=== PATIENT | female | born 1990 ===

== ENCOUNTER 2023-07-17 17:31 | Emergency (ER) | payer OTHER ==
[2023-07-17 18:01] VITALS: TEMP 98.2
[2023-07-17] MEDS ORDERED: SODIUM CHLORIDE 0.9% 1,000 ML IV STA (21:20)
[2023-07-17] MEDS ORDERED: MECLIZINE 12.5 MG TAB PO STA (21:20)
[2023-07-17] MEDS ORDERED: METOCLOPRAMIDE 5 MG/ML 2 ML VIAL IVP STA (21:20)
[2023-07-17] MEDS ORDERED: ACETAMINOPHEN TAB 500 MG TAB PO STA (21:31)
[2023-07-17] MEDS ORDERED: KETOROLAC 15 MG/ML 1 ML VIAL IVP STA (21:31)
--- NOTE | 2023-07-17 21:32 | ED ---
General Adult HPI - General Chief complaint: Headache Stated complaint: Dizziness,Headache Time Seen by Provider: 07/17/23 20:43 Source: patient Mode of arrival: ambulatory Limitations: no limitations - History of Present Illness Initial comments: 32-year-old female presented to the ED with a chief complaint of dizziness. Patient states for the past few months has had intermittent episodes of a "wooshing" sound in her right ear and right-sided headache. Reports that she saw an ENT for this in the past however has not followed up due to recently mov ing to this area. Today, states onset of this "wooshing" around and right sided headache. However also notes some dizziness which patient reports she has not felt with her symptoms in the past. Associated nausea. States that she has tried taking 1 g of Tylenol and 4 mg of Zofran which has not provided her relief. Denies chest reassurance of breath. No other complaints. - Related Data Previous Rx's Medication Instructions Recorded Meclizine [Antivert] 25 mg PO QID PRN #20 tab 07/17/23 Allergies Allergy/AdvReac Type Severity Reaction Status Date / Time morphine Allergy Rash/Hives Verified 07/17/23 17:57 solifenacin [From Vesicare] Allergy Rash/Hives Verified 07/17/23 17:57 sumatriptan [From Imitrex] Allergy Rash/Hives Verified 07/17/23 17:57 tramadol Allergy Rash/Hives Verified 07/17/23 17:57 Review of Systems ROS Statement: Those systems with pertinent positive or pertinent negative responses have been documented in the HPI. ROS Other: All systems not noted in ROS Statement are negative. Past Medical History Past Medical History: Asthma, Fibromyalgia Additional Past Medical History / Comment(s): Migraines History of Any Multi-Drug Resistant Organisms: None Reported Past Surgical History: Adenoidectomy, Section, Cholecystectomy, Ear Surgery, Tonsillectomy Additional Past Surgical History / Comment(s): bladder Past Psychological History: No Psychological Hx Reported Smoking Status: Current every day smoker Past Alcohol Use History: Occasional Past Drug Use History: Marijuana General Exam Limitations: no limitations General appearance: alert, in no apparent distress Eye exam: Present: normal appearance, other (Horizontal nystagmus) ENT exam: Present: TM's normal bilaterally Neck exam: Present: normal inspection Respiratory exam: Present: normal lung sounds bilaterally Cardiovascular Exam: Present: regular rate, normal rhythm GI/Abdominal exam: Present: soft Neurological exam: Present: alert, oriented X3, CN II-XII intact, other (Finger to nose, rapid alternating hand movements, heel to nur intact.) Skin exam: Present: warm, dry Course Vital Signs 07/17/23 07/17/23 17:53 21:56 Temperature 98.2 F Pulse Rate 73 78 Respiratory 20 16 Rate Blood Pressure 134/84 114/73 O2 Sat by Pulse 99 97 Oximetry Medical Decision Making - Medical Decision Making Was pt. sent in by a medical professional or institution (, PRISCILLA, ARTIST SUSPECT, urgent care, hospital, or long term...) When possible be specific @ -No Did you speak to anyone other than the patient for history (EMS, parent, family, police, friend...)? What history was obtained from this source @ -No Did you review nursing and triage notes (agree or disagree)? Why? @ -I reviewed and agree with nursing and triage notes Were old charts reviewed (outside hosp., previous admission, EMS record, old EKG, old radiological studies, urgent care reports/EKG's, long term records)? Report findings @ -No old charts were reviewed Differential Diagnosis (chest pain, altered mental status, abdominal pain women, abdominal pain men, vaginal bleeding, weakness, fever, dyspnea, syncope, headache, dizziness, GI bleed, back pain, seizure, CVA, palpatations, mental health, musculoskeletal)? @ -Differential Headache: Migraine, tension, cluster, carbon monoxide, central venous thrombosis, pension karma temporal arteritis, acute closure glaucoma, intercranial hemorrhage, mastoiditis, sinusitis, head injury, this is not meant to be an all-inclusive list. EKG interpreted by me (3pts min.). @ -None X-rays interpreted by me (1pt min.). @ -None done CT interpreted by me (1pt min.). @ -None done U/S interpreted by me (1pt. min.). @ -None done What testing was considered but not performed or refused? (CT, X-rays, U/S, labs)? Why? @ -None What meds were considered but not given or refused? Why? @ -None Did you discuss the management of the patient with other professionals (professionals i.e. , PA, ARTIST SUSPECT, lab, RT, psych nurse, social worker delinquency prevention, or nurse manager, teacher, project control officer, spring encaser)? Give summary @ -No Was smoking cessation discussed for >3mins.? @ -No Was critical care preformed (if so, how long)? @ -No Were there social determinants of health that impacted care today? How? (Homelessness, low income, unemployed, alcoholism, drug addiction, transportation, low edu. Level, literacy, decrease access to med. care, long-term, rehab)? @ -No Was there de-escalation of care discussed even if they declined (Discuss DNR or withdrawal of care, Hospice)? DNR status @ -No What co-morbidities impacted this encounter? (DM, HTN, Smoking, COPD, CAD, Cancer, CVA, ARF, Chemo, Hep., AIDS, mental health diagnosis, sleep apnea, morbid obesity)? @ -None Was patient admitted / discharged? Hospital course, mention meds given and route, prescriptions, significant lab abnormalities, going to OR and other pertinent info. @ -Discharge 32-year-old female presenting with ongoing intermittent episodes of right ear pain, right-sided headache associated nausea now experiencing dizziness today. Exam is significant for horizontal nystagmus. At this time, patient received Reglan, meclizine, Toradol, Tylenol, and IV fluids. Patient reports at this time feels significantly improved and reports that she would like to go home due to her ride being here with no further testing. At this time, discharged in stable condition. Discussed return precautions with patient who verbalizes agreement. Undiagnosed new problem with uncertain prognosis? @ -No Drug Therapy requiring intensive monitoring for toxicity (Heparin, Nitro, Insulin, Cardizem)? @ -No Were any procedures done? @ -No Diagnosis/symptom? @ -Vertigo Acute, or Chronic, or Acute on Chronic? @ -Acute on chronic Uncomplicated (without systemic symptoms) or Complicated (systemic symptoms)? @ -Uncomplicated Side effects of treatment? @ -No Exacerbation, Progression, or Severe Exacerbation? @ -No Poses a threat to life or bodily function? How? (Chest pain, [place], [place], pneumonia, PE, COPD, DKA, ARF, appy, cholecystitis, CVA, Diverticulitis, Homicidal, Suicidal, threat to staff... and all critical care pts) @ -No Disposition Clinical Impression: Vertigo Disposition: HOME SELF-CARE Condition: Good Instructions (If sedation given, give patient instructions): Vertigo (ED), Benign Paroxysmal Positional Vertigo (ED) Additional Instructions: Please return to the Emergency Department if symptoms worsen or any other concerns. Please follow-up with ENT. Prescriptions: Meclizine [Antivert] 25 mg PO QID PRN #20 tab PRN Reason: Vertigo Is patient prescribed a controlled substance at d/c from ED?: No Referrals: None,Stated [Primary Care Provider] - 1-2 days Javed Lobato DO [Doctor of Osteopathic Medicine] - 1-2 days Time of Disposition: 22:39
[2023-07-17] MEDS ORDERED: SCOPOLAMINE 1 MG/72 HR PATCH TRANSDERM STA (22:24)
[2023-07-17] MEDS ORDERED: ACET/COD 300 MG/30 MG STARTER PACK 6 TAB BTL PO STA (22:24)
[2023-07-17 22:33] VITALS: BP 114/73; PULSE 78; RESP 16
== END 2023-07-17 22:44 | disposition home or self-care (01) ==
LOC: EC 17:31
DX: R42 Dizziness and giddiness (principal); J45.909 Unspecified asthma, uncomplicated; F12.90 Cannabis use, unspecified, uncomplicated; F17.200 Nicotine dependence, unspecified, uncomplicated; Z88.5 Allergy status to narcotic agent; Z88.8 Allergy status to other drugs, medicaments and biological substances; Z90.49 Acquired absence of other specified parts of digestive tract
CPT/HCPCS: 99284; 96374; 96375; J2765; J1885

== ENCOUNTER → 2023-11-30 | Outpatient (CLI) | payer OTHER ==
--- NOTE | 2023-11-30 16:45 | XR ---
PROCEDURE: XR shoulder complete RT - 3V DATE AND TIME: 11/30/2023 4:22 PM CLINICAL INDICATION: PHH; R06.02 SHORTNESS OF BREATHE TECHNIQUE: Department protocol COMPARISON: None FINDINGS: There is no fracture or malalignment. The soft tissues are unremarkable. IMPRESSION: NO ACUTE PROCESS.
--- NOTE | 2023-11-30 16:48 | XR ---
PROCEDURE: XR cervical spine comp DATE AND TIME: 11/30/2023 4:22 PM CLINICAL INDICATION: PHH; R06.02 SHORTNESS OF BREATHE TECHNIQUE: 5 views were obtained. COMPARISON: None FINDINGS/IMPRESSION: There is cervical spine straightening and even gentle reversal of the normal lordotic curvature apex at the C4-5 level. There is no fracture or malalignment. The soft tissues are unremarkable.
== END | disposition home or self-care (01) ==
LOC: RADXRMAIN 16:01
PROVIDERS: ATTEND Emergency Medicine
DX: S46.911A Strain of unspecified muscle, fascia and tendon at shoulder and upper arm level, right arm, initial encounter (principal); M54.2 Cervicalgia; R20.9 Unspecified disturbances of skin sensation
CPT/HCPCS: 72050

== ENCOUNTER → 2024-01-05 | Outpatient (CLI) | payer OTHER ==
[2024-01-05 15:52] LABS: Basophils # (A) 0.08 X 10*3/uL (0.00-0.10); Basophils % (A) 1.1 %; Eosinophils # (A) 0.27 X 10*3/uL (0.04-0.35); Eosinophils % (A) 3.6 %; HCT 37.7 % (37.2-46.3); HGB 12.4 g/dL (12.0-15.0); Lymphocytes # (A) 2.78 X 10*3/uL (0.90-5.00); Lymphocytes % (A) 37.4 %; MCHC 32.9 g/dL (32.0-37.0); MCV 88.3 FL (80.0-97.0); Mean Platelet Volume 10.8 FL (9.5-12.2); Monocytes # (A) 0.43 X 10*3/uL (0.20-1.00); Monocytes % (A) 5.8 %; NRBC Per 100 WBC 0 X 10*3/uL (0.00-0.01); Neutrophils # (A) 3.86 X 10*3/uL (1.80-7.70); Platelet Count 255 X 10*3/uL (140-440); RBC 4.27 X 10*6/uL (4.10-5.20); RDW 12.2 % (11.5-14.5); WBC 7.43 X 10*3/uL (4.50-10.00)
[2024-01-05 16:29] LABS: ALT 17 U/L (8-44); AST 16 U/L (13-35); Albumin 4.1 g/dL (3.8-4.9); Albumin/Globulin Ratio 1.86 Ratio (1.60-3.17); Alkaline Phosphatase 75 U/L (41-126); Blood Urea Nitrogen 8.1 mg/dL (9.0-27.0); Calcium 9.1 mg/dL (8.7-10.3); Carbon Dioxide 23.9 mmol/L (21.6-31.8); Chloride 107 mmol/L (96-109); Chol/HDL Ratio 3.08 Ratio; Globulin 2.2 g/dL (1.6-3.3); Glucose 87 mg/dL (70-110); LDL Cholesterol,Calculated 83.6 mg/dL (0.0-131.0); Potassium 4.4 mmol/L (3.5-5.5); Sodium 141 mmol/L (135-145); Total Bilirubin 0.4 mg/dL (0.3-1.2); Total Protein 6.3 g/dL (6.2-8.2); VLDL Calculation 15.68 mg/dL (5.00-40.00)
== END | disposition home or self-care (01) ==
LOC: LABWHC1 12:05
PROVIDERS: ATTEND Family Medicine
DX: M79.7 Fibromyalgia (principal)
CPT/HCPCS: 36415; 80053; 80061; 82306; 84443; 85025; 93005

== ENCOUNTER → 2024-01-05 | Outpatient (CLI) | payer OTHER ==
[2024-01-05 15:52] LABS: Basophils # (A) 0.08 X 10*3/uL (0.00-0.10); Basophils % (A) 1.1 %; Eosinophils # (A) 0.27 X 10*3/uL (0.04-0.35); Eosinophils % (A) 3.6 %; HCT 37.7 % (37.2-46.3); HGB 12.4 g/dL (12.0-15.0); Lymphocytes # (A) 2.78 X 10*3/uL (0.90-5.00); Lymphocytes % (A) 37.4 %; MCHC 32.9 g/dL (32.0-37.0); MCV 88.3 FL (80.0-97.0); Mean Platelet Volume 10.8 FL (9.5-12.2); Monocytes # (A) 0.43 X 10*3/uL (0.20-1.00); Monocytes % (A) 5.8 %; NRBC Per 100 WBC 0 X 10*3/uL (0.00-0.01); Neutrophils # (A) 3.86 X 10*3/uL (1.80-7.70); Platelet Count 255 X 10*3/uL (140-440); RBC 4.27 X 10*6/uL (4.10-5.20); RDW 12.2 % (11.5-14.5); WBC 7.43 X 10*3/uL (4.50-10.00)
[2024-01-05 16:29] LABS: ALT 17 U/L (8-44); AST 16 U/L (13-35); Albumin 4.1 g/dL (3.8-4.9); Albumin/Globulin Ratio 1.86 Ratio (1.60-3.17); Alkaline Phosphatase 75 U/L (41-126); Blood Urea Nitrogen 8.1 mg/dL (9.0-27.0); Calcium 9.1 mg/dL (8.7-10.3); Carbon Dioxide 23.9 mmol/L (21.6-31.8); Chloride 107 mmol/L (96-109); Chol/HDL Ratio 3.08 Ratio; Globulin 2.2 g/dL (1.6-3.3); Glucose 87 mg/dL (70-110); LDL Cholesterol,Calculated 83.6 mg/dL (0.0-131.0); Potassium 4.4 mmol/L (3.5-5.5); Sodium 141 mmol/L (135-145); Total Bilirubin 0.4 mg/dL (0.3-1.2); Total Protein 6.3 g/dL (6.2-8.2); VLDL Calculation 15.68 mg/dL (5.00-40.00)
== END | disposition home or self-care (01) ==
LOC: LABWHC1 14:20
PROVIDERS: ATTEND Psychiatry & Neurology Neurology
DX: I49.9 Cardiac arrhythmia, unspecified (principal)
CPT/HCPCS: 36415; 80053; 80061; 82306; 84443; 85025

== ENCOUNTER 2024-06-27 14:16 | Observation (INO) | payer OTHER ==
[2024-06-27] MEDS: LORazepam 2 MG/ML INJ IV STA (15:32)
[2024-06-27] MEDS: SODIUM CHLORIDE 0.9% 1,000 ML IV STA (15:51)
[2024-06-27] MEDS: ONDANSETRON 4 MG/2 ML VIAL IVP STA (15:52)
[2024-06-27] MEDS: MECLIZINE 12.5 MG TAB PO STA (15:55)
[2024-06-27] MEDS: diphenhydrAMINE 50 MG/ML 1 ML VIAL IVP STA (15:56)
[2024-06-27] MEDS: HYDROmorphone 0.5 MG/0.5 ML SYRINGE IVP STA (15:58)
[2024-06-27 16:03] LABS: Basophils # (A) 0.1 k/uL (0-0.2); Basophils % (A) 1 %; Eosinophils # (A) 0.3 k/uL (0-0.7); Eosinophils % (A) 4 %; HGB 13.4 gm/dL (11.4-16.0); Lymphocytes # (A) 3.3 k/uL (1.0-4.8); Lymphocytes % (A) 39 %; MCH 29.2 pg (25.0-35.0); MCHC 32.6 g/dL (31.0-37.0); MCV 89.6 fL (80.0-100.0); Mean Platelet Volume 8.2; Monocytes # (A) 0.4 k/uL (0-1.0); Monocytes % (A) 4 %; Neutrophils # (A) 4.2 k/uL (1.3-7.7); Neutrophils % (A) 50 %; Platelet Count 276 k/uL (150-450); RBC 4.58 m/uL (3.80-5.40); WBC 8.4 k/uL (3.8-10.6)
[2024-06-27 16:07] LABS: Amorphous Sediment,Urine Rare /hpf; Appearance,Urine Cloudy (Clear); Bacteria,Urine Few /hpf; Bilirubin,Urine Negative (Negative); Blood,Urine Negative (Negative); Color,Urine Yellow; Glucose,Urine (UA) Negative (Negative); Ketones,Urine Negative (Negative); Leukocyte Esterase,Urine Negative (Negative); Mucus,Urine Many /hpf; Nitrite,Urine Negative (Negative); PH, Urine 5.5 (5.0-8.0); Protein,Urine Trace (Negative); RBC,Urine 3 /hpf (0-5); Squamous Epithelial Cell,Urine 8 /hpf (0-4); Urobilinogen,Urine <2.0 mg/dL (<2.0); WBC,Urine 4 /hpf (0-5)
[2024-06-27 16:16] LABS: INR 0.9 (<1.2); Partial Thromboplastin Time 25.1 sec (22.0-30.0); Prothrombin Time 10.5 sec (10.0-12.5)
--- NOTE | 2024-06-27 17:18 | CT ---
EXAMINATION TYPE: CT brain wo con DATE OF EXAM: 06/27/2024 COMPARISON: None INDICATION: dizziness, hx of vertigo DLP: 1141.6 mGycm, Automated exposure control for dose reduction was used. CONTRAST: None CT of the brain is performed utilizing 3 mm thick sections through the posterior fossa and 3 mm thick sections through the remaining calvarium. Study is performed within 24 hours of arrival to the hosp ital. No abnormal hyperdensity is present to suggest an acute intracranial hemorrhage. No mass lesion is evident. No acute infarcts are evident. Ventricles and sulci are appropriate for the patient age. Paranasal sinuses and mastoid air cells within the [id number] are clear. IMPRESSION: 1. No acute intracranial process. Follow up MRI can be performed as clinically indicated. [facility], , 06/27/2024 5:16 PM
--- NOTE | 2024-06-27 17:39 | CT ---
EXAMINATION TYPE: CT angio head neck DATE OF EXAM: 06/27/2024 HISTORY: dizziness, hx of vertigo COMPARISON: None CT DLP: 817.2 mGycm. Automated Exposure Control for Dose Reduction was Utilized. TECHNIQUE: CTA scan of the neck is performed with IV Contrast, patient injected with 65ml mL of Isov ue 370, axial images are obtained, coronal and sagittal reformatted images are reviewed. Three-D jennifer nstructed images are created on an independent workstation and reviewed. Source images are reviewed. FINDINGS: Carotid/Vascular Structures: There is a 3 vessel arch. Common carotid arteries bifurcate into internal and external carotid arteries without significant chelly w limiting stenosis. Vertebral arteries are codominant. Internal carotid arteries and vertebral arteries are patent to the skull base. Cervical of [place]: Vertebral basilar system appears normal. Posterior cerebral vasculature is unrema rkable. Internal carotid arteries bifurcate normally into A1 and M1 segments. A2 segments are normal. The anterior communicating artery is absent. The posterior communicating arteries are not identified. Other: IMPRESSION: 1. No flow-limiting stenosis bilateral carotid bifurcations. 2. Normal [place] of [place] NASCET criteria was used in interpretation of this exam? [facility], , 06/27/2024 5:37 PM
[2024-06-27] MEDS ORDERED: ONDANSETRON 4 MG/2 ML VIAL IVP PRN (18:02)
[2024-06-27] MEDS ORDERED: NALOXONE 0.4 MG/ML 1 ML VIAL IV PRN (18:02)
--- NOTE | 2024-06-27 18:04 | ED ---
General Adult HPI - General Chief complaint: Dizziness Stated complaint: vertigo,neck pain Time Seen by Provider: 06/27/24 15:04 Source: patient, RN notes reviewed, old records reviewed Mode of arrival: ambulatory Limitations: no limitations - History of Present Illness Initial comments: Patient is a 33-year-old female who presents emergency department complaining of vertigo for multiple days. Does have a history of intermittent vertigo as well as migraines. Was sent in by her neurologist to be evaluated for possible stroke. Describes the vertigo as room spinning sensation. Has intermittent headaches without radiate into her neck. Denies any other acute complaints at this time. Denies nausea or vomiting. Denies abdominal pain, chest pain, shortness of breath. Denies any fevers. Presents for further evaluation.Patient states that vertigo is worse with certain positions and movement. Denies upper respiratory infection symptoms. - Related Data Home Medications Medication Instructions Recorded Confirmed Acetaminophen Tab [Tylenol Tab] 1,000 mg PO BID PRN 06/27/24 06/27/24 Gabapentin [Neurontin] 300 mg PO TID 06/27/24 06/27/24 Omeprazole 40 mg PO DAILY 06/27/24 06/27/24 Rimegepant Sulfate [Nurtec Odt] 75 mg PO DAILY PRN 06/27/24 06/27/24 Previous Rx's Medication Instructions Recorded Meclizine [Antivert] 25 mg PO QID PRN #20 tab 07/17/23 Allergies Allergy/AdvReac Type Severity Reaction Status Date / Time solifenacin [From Vesicare] Allergy Rash/Hives Verified 06/27/24 16:43 sumatriptan [From Imitrex] Allergy Rash/Hives Verified 06/27/24 16:43 morphine AdvReac See comment Verified 06/27/24 16:43 tramadol AdvReac Nausea & Verified 06/27/24 16:43 Vomiting Review of Systems ROS Statement: Those systems with pertinent positive or pertinent negative responses have been documented in the HPI. Review of Systems: CONST: Denies fever EYES: Denies blurry vision ENT: Denies nasal congestion C/V: Denies Chest pain RESP: Denies shortness of breath GI: Denies abdominal pain : Denies dysuria SKIN: Denies rash. MSK: Denies joint pain. NEURO: Endorses headache ROS Other: All systems not noted in ROS Statement are negative. Past Medical History Past Medical History: Asthma, Fibromyalgia Additional Past Medical History / Comment(s): Migraines History of Any Multi-Drug Resistant Organisms: None Reported Past Surgical History: Adenoidectomy, Section, Cholecystectomy, Ear Surgery, Tonsillectomy Additional Past Surgical History / Comment(s): bladder Past Psychological History: No Psychological Hx Reported Smoking Status: Current every day smoker Past Alcohol Use History: Occasional Past Drug Use History: Marijuana General Exam - General Exam Comments Initial Comments: General: Appears in no acute distress. HEAD: Normal with no signs of head trauma. EYES: PERRLA, EOMI, conjunctiva normal, no discharge. Pupils are 3 mm and equal bilaterally. No obvious nystagmus present. ENT: Hearing grossly intact, normal oropharynx. RESPIRATORY: Clear breath sounds bilaterally. No wheezes, rales, or rhonchi. C/V: Regular rate and rhythm. S1 and S2 auscultated, peripheral pulses 2+ and intact throughout ABD: Abd is soft, nontender, nondistended EXT: Normal range of motion, no obvious deformity SKIN: No rashes or lesions observed on exposed skin. NEURO: Alert and oriented x 4. Cranial nerves II-XII intact. No focal sensory or strength deficits. GCS of 15. NIH of 0. Negative dysdiadochokinesia. Normal finger-nose testing and [id number]-ny-[id number] testing. Limitations: no limitations Course Vital Signs 06/27/24 06/27/24 14:35 18:45 Temperature 98.6 F 98.9 F Pulse Rate 72 74 Respiratory 18 20 Rate Blood Pressure 131/83 146/75 O2 Sat by Pulse 99 99 Oximetry Medical Decision Making - Medical Decision Making Was pt. sent in by a medical professional or institution (, PA, OVEN ATTENDANT, urgent c are, hospital, or correction...) When possible be specific @ -No Did you speak to anyone other than the patient for history (EMS, parent, family, police, friend...)? What history was obtained from this source @ -No Did you review nursing and triage notes (agree or disagree)? Why? @ -I reviewed and agree with nursing and triage notes Were old charts reviewed (outside hosp., previous admission, EMS record, old EKG, old radiological studies, urgent care reports/EKG's, correction records)? Report findings @ -Reviewed prior EKG from December 2023. No significant acute changes today. Differential Diagnosis (chest pain, altered mental status, abdominal pain women, abdominal pain men, vaginal bleeding, weakness, fever, dyspnea, syncope, headache, dizziness, GI bleed, back pain, seizure, CVA, palpatations, mental health, musculoskeletal)? @ -Differential Dizziness: Benign paroxysmal positional Vertigo, Meniere's disease, otitis media, acoustic neuroma, vertebrobasilar insufficiency, cerebellar stroke, encephalitis, hypovolemic, arrhythmia, coronary artery syndrome, anemia, this is not meant to be an all-inclusive list EKG interpreted by me (3pts min.). @ -As above X-rays interpreted by me (1pt min.). @ -None done CT interpreted by me (1pt min.). @ -CT brain, CT angiogram of the head and neck negative for any obvious acute process to explain the patient's symptoms. U/S interpreted by me (1pt. min.). @ -None done What testing was considered but not performed or refused? (CT, X-rays, U/S, labs)? Why? @ -None What meds were considered but not given or refused? Why? @ -None Did you discuss the management of the patient with other professionals (professionals i.e. , PA, OVEN ATTENDANT, lab, RT, psych nurse, social security assessor, vocational training director, teacher, grants officer, mattress spring encaser)? Give summary @ -Discussed with admitting physician, Dr. Skaggs who accepted the admission. Was smoking cessation discussed for >3mins.? @ -No Was critical care preformed (if so, how long)? @ -No Were there social determinants of health that impacted care today? How? (Homelessness, low income, unemployed, alcoholism, drug addiction, transportation, low edu. Level, literacy, decrease access to med. care, longterm, rehab)? @ -No Was there de-escalation of care discussed even if they declined (Discuss DNR or withdrawal of care, Hospice)? DNR status @ -No What co-morbidities impacted this encounter? (DM, HTN, Smoking, COPD, CAD, Cancer, CVA, ARF, Chemo, Hep., AIDS, mental health diagnosis, sleep apnea, morbid obesity)? @ -None Was patient admitted / discharged? Hospital course, mention meds given and route, prescriptions, significant lab abnormalities, going to OR and other pertinent info. @ -Patient presents to the emergency department complaining of vertiginous symptoms that have been on and off for the last 3 to 4 days. Was sent in by neurologist to rule out stroke. NIH is 0. Does not meet criteria for stroke pager activation. We will obtain CT as well as CT angiogram of the head and neck. Basic labs will be obtained. Patient was in agreement this plan. Vitals are within acceptable limits. She will be symptomatically treated with IV medications. EKG showed no signs of acute ischemia. Imaging shows no obvious acute intracranial process or serious obstruction. Laboratory studies are unremarkable. On reevaluation despite meclizine patient is still having intermittent v ertiginous symptoms. Seems to be very positional. However due to the continued vertigo I did offer admission which she accepted. Patient will be admitted to observation. Neurology will be consulted. I spoke with the admitting physician, Dr. Skaggs who accepted the admission. Patient given a dose of aspirin. Undiagnosed new problem with uncertain prognosis? @ -No Drug Therapy requiring intensive monitoring for toxicity (Heparin, Nitro, Insulin, Cardizem)? @ -No Were any procedures done? @ -No Diagnosis/symptom? @ -Vertigo Acute, or Chronic, or Acute on Chronic? @ -Acute Uncomplicated (without systemic symptoms) or Complicated (systemic symptoms)? @ -Complicated Side effects of treatment? @ -No Exacerbation, Progression, or Severe Exacerbation? @ -No Poses a threat to life or bodily function? How? (Chest pain, [place], [place], pneumonia, PE, COPD, DKA, ARF, appy, cholecystitis, CVA, Diverticulitis, Homicidal, Suicidal, threat to staff... and all critical care pts) @ -Potentially, yes - Lab Data Result diagrams: 06/27/24 15:53 06/27/24 17:50 Lab Results 06/27/24 06/27/24 06/27/24 Range/Units 15:53 15:53 15:53 WBC 8.4 (3.8-10.6) k/uL RBC 4.58 (3.80-5.40) m/uL Hgb 13.4 (11.4-16.0) gm/dL Hct 41.0 (34.0-46.0) % MCV 89.6 (80.0-100.0) fL MCH 29.2 (25.0-35.0) pg MCHC 32.6 (31.0-37.0) g/dL RDW 13.0 (11.5-15.5) % Plt Count 276 (150-450) k/uL MPV 8.2 Neutrophils % 50 % Lymphocytes % 39 % Monocytes % 4 % Eosinophils % 4 % Basophils % 1 % Neutrophils # 4.2 (1.3-7.7) k/uL Lymphocytes # 3.3 (1.0-4.8) k/uL Monocytes # 0.4 (0-1.0) k/uL Eosinophils # 0.3 (0-0.7) k/uL Basophils # 0.1 (0-0.2) k/uL PT 10.5 (10.0-12.5) sec INR 0.9 (<1.2) APTT 25.1 (22.0-30.0) sec Sodium (137-145) mmol/L Potassium (3.5-5.1) mmol/L Chloride (98-107) mmol/L Carbon Dioxide (22-30) mmol/L Anion Gap mmol/L BUN (7-17) mg/dL Creatinine (0.52-1.04) mg/dL Est GFR (CKD-EPI)AfAm (>60 ml/min/1.73 sqM) Est GFR (CKD-EPI)NonAf (>60 ml/min/1.73 sqM) Glucose (74-99) mg/dL Calcium (8.4-10.2) mg/dL Total Bilirubin (0.2-1.3) mg/dL AST (14-36) U/L ALT (4-34) U/L Alkaline Phosphatase (38-126) U/L Total Protein (6.3-8.2) g/dL Albumin (3.5-5.0) g/dL Urine Color Yellow Urine Appearance Cloudy H (Clear) Urine pH 5.5 (5.0-8.0) Ur Specific [place] 1.030 (1.001-1.035) Urine Protein Trace H (Negative) Urine Glucose (UA) Negative (Negative) Urine Ketones Negative (Negative) Urine Blood Negative (Negative) Urine Nitrite Negative (Negative) Urine Bilirubin Negative (Negative) Urine Urobilinogen <2.0 (<2.0) mg/dL Ur Leukocyte Esterase Negative (Negative) Urine RBC 3 (0-5) /hpf Urine WBC 4 (0-5) /hpf Ur Squamous Epith Cells 8 H (0-4) /hpf Amorphous Sediment Rare H (None) /hpf Urine Bacteria Few H (None) /hpf Urine Mucus Many H (None) /hpf 06/27/24 Range/Units 17:50 WBC (3.8-10.6) k/uL RBC (3.80-5.40) m/uL Hgb (11.4-16.0) gm/dL Hct (34.0-46.0) % MCV (80.0-100.0) fL MCH (25.0-35.0) pg MCHC (31.0-37.0) g/dL RDW (11.5-15.5) % Plt Count (150-450) k/uL MPV Neutrophils % % Lymphocytes % % Monocytes % % Eosinophils % % Basophils % % Neutrophils # (1.3-7.7) k/uL Lymphocytes # (1.0-4.8) k/uL Monocytes # (0-1.0) k/uL Eosinophils # (0-0.7) k/uL Basophils # (0-0.2) k/uL PT (10.0-12.5) sec INR (<1.2) APTT (22.0-30.0) sec Sodium 138 (137-145) mmol/L Potassium 3.6 (3.5-5.1) mmol/L Chloride 108 H (98-107) mmol/L Carbon Dioxide 23 (22-30) mmol/L Anion Gap 7 mmol/L BUN 7 (7-17) mg/dL Creatinine 0.63 (0.52-1.04) mg/dL Est GFR (CKD-EPI)AfAm >90 (>60 ml/min/1.73 sqM) Est GFR (CKD-EPI)NonAf >90 (>60 ml/min/1.73 sqM) Glucose 75 (74-99) mg/dL Calcium 8.0 L (8.4-10.2) mg/dL Total Bilirubin 1.1 (0.2-1.3) mg/dL AST 30 (14-36) U/L ALT 17 (4-34) U/L Alkaline Phosphatase 66 (38-126) U/L Total Protein 5.6 L (6.3-8.2) g/dL Albumin 3.5 (3.5-5.0) g/dL Urine Color Urine Appearance (Clear) Urine pH (5.0-8.0) Ur Specific [place] (1.001-1.035) Urine Protein (Negative) Urine Glucose (UA) (Negative) Urine Ketones (Negative) Urine Blood (Negative) Urine Nitrite (Negative) Urine Bilirubin (Negative) Urine Urobilinogen (<2.0) mg/dL Ur Leukocyte Esterase (Negative) Urine RBC (0-5) /hpf Urine WBC (0-5) /hpf Ur Squamous Epith Cells (0-4) /hpf Amorphous Sediment (None) /hpf Urine Bacteria (None) /hpf Urine Mucus (None) /hpf - EKG Data -: EKG Interpreted by Me EKG Comments: 12-lead Electrocardiogram Interpretation Note EKG was reviewed and interpreted by myself. 12-lead ECG performed at 1541 is interpreted by me as revealing normal sinus rhythm at a rate of 63 beats per minute. [place] is normal. [place] interval is 134 ms, QRS duration is 86 ms, QTc is 386 ms.. There were no ST or T wave abnormalities to suggest myocardial ischemia or injury. R wave progression across the precordium was satisfactory. By my interpretation this EKG is non-diagnostic for acute ischemia. Disposition Clinical Impression: Vertigo Disposition: ADMITTED IP TO THIS [facility] Condition: Stable Time of Disposition: 18:00
[2024-06-27 18:17] LABS: ALT 17 U/L (4-34); AST 30 U/L (14-36); African American GFR (CKD) >90 (>60 ml/min/1.73 sqM); Albumin 3.5 g/dL (3.5-5.0); Alkaline Phosphatase 66 U/L (38-126); Anion Gap 7 mmol/L; Blood Urea Nitrogen 7 mg/dL (7-17); Carbon Dioxide 23 mmol/L (22-30); Chloride 108 mmol/L (98-107); Glucose 75 mg/dL (74-99); Non-African American GFR(CKD) >90 (>60 ml/min/1.73 sqM); Potassium 3.6 mmol/L (3.5-5.1); Sodium 138 mmol/L (137-145); Total Bilirubin 1.1 mg/dL (0.2-1.3); Total Protein 5.6 g/dL (6.3-8.2)
[2024-06-27] MEDS: ASPIRIN 325 MG TAB PO STA (18:19)
--- NOTE | 2024-06-27 20:44 | P.HPIM ---
History of Present Illness H&P Date: 06/27/24 Chief Complaint: Dizziness Patient is a 33-year-old female with vertigo and migraines presents to the ED with complaint of vertigo. She states the episode occurred 3 days ago. She notices symptoms when she was sitting down on the ground while she was putting together a bed frame and decided to stand up. She says when she stands up she immediately felt dizzy and fell down. She says that this dizziness has been constant ever since. This morning she decided to call her neurologist and was advised to come to the emergency department to rule out a stroke. She reports has had previous episodes in the past but not as severe as this. She says the dizziness is triggered when she is changing positions such as standing up or sitting up from laying down. She also has current complaint of migraines. She describes the migraine as a sharp pain starting from the back of the head radiating down to the neck. She denies any dehydration, diarrhea, decreased p.o. intake, denies any recent travel or hospital stay. Denies any history of blood clots or strokes. She claims that she had an MRI/MRI of the brain 6 months ago and was told that she has some abnormalities in her blood vessels of the brain possibly related to migraine She also claims that for many years she has been having tinnitus specially in her right ear. Again denies any nausea vomiting denies any headache or vision changes She admits to some chest pain which she got to the ED and describes it as a burning sensation with no radiation. She denies any fever, chills, shortness of breath, nausea, vomiting, abdomen pain. Review of systems: Pertinent positives and negatives as discussed in HPI, a complete review of systems was performed and all other systems are negative. Physical examination: Vitals: T 97.2 Fahrenheit, MN 75, RR 18, BP 123/65, O2 sat 99% on room air General: non toxic, no distress, appears at stated age, obese Derm: no unusual rashes/lesions, warm Head: atraumatic, normocephalic, symmetric Eyes: EOMI, anicteric sclera, pupils equal round reactive to light ENT: Nose and ears atraumatic Mouth: no lip lesion, mucus membranes moist Cardiovascular: S1S2 reg, no murmur, positive dorsalis pedis pulse bilateral, no edema Lungs: CTA bilateral, no rhonchi, no rales, no accessory muscle use Abdominal: soft, nontender to palpation, no guarding Ext: muscle strength 5 out of 5 in all 4 extremities grossly, no gross muscle atrophy, no contractures, Neuro: CN II-XI grossly intact, no gross focal neuro deficits, positive Romberg test, finger-nose exam [id number] exam both unremarkable Psych: Alert, oriented, to person place and time Assessment/Plan: Patient is a 33-year-old female with vertigo and migraines presents to the ED with dizziness. []ED documentation reviewed and case discussed with ED provider. Discussed with: [][]The patient is admitted with an anticipated greater than 2 midnight stay for evaluation of persistent vertigo. #. Persistent vertigo in the setting of dizziness Rule out stroke NIH of 0 All labs unremarkable UA unremarkable EKG independently interpreted normal sinus rhythm with a rate of 63 bpm, QTc [address] angiography showed no flow-limiting stenosis bilateral carotid bifurcations, normal [place] of [place] CT brain showed no acute intracranial process Order brain MRI Check orthostatics Fall precautions Neurochecks q4hr Cardiac monitoring Placed on meclizine 25 mg PO TID PRN Neurology consulted Check orthostatic vitals #. Migraine Toradol 50 mg IVP every 6 hours as needed Neurology consulted #. GERD Continue omeprazole 40 mg PO daily F: N/A E: Replete electrolytes as needed N: Regular diet A: Fall precautions DVT prophylaxis: Lovenox 40 mg subcu daily CODE STATUS: Full code Past Medical History Past Medical History: Asthma, Fibromyalgia Additional Past Medical History / Comment(s): Migraines History of Any Multi-Drug Resistant Organisms: None Reported Past Surgical History: Adenoidectomy, Section, Cholecystectomy, Ear Surgery, Tonsillectomy Additional Past Surgical History / Comment(s): bladder Past Psychological History: No Psychological Hx Reported Smoking Status: Current every day smoker Past Alcohol Use History: Occasional Past Drug Use History: Marijuana Medications and Allergies Home Medications Medication Instructions Recorded Confirmed Type Meclizine [Antivert] 25 mg PO QID PRN #20 tab 07/17/23 06/27/24 Rx Acetaminophen Tab [Tylenol Tab] 1,000 mg PO BID PRN 06/27/24 06/27/24 History Gabapentin [Neurontin] 300 mg PO TID 06/27/24 06/27/24 History Omeprazole 40 mg PO DAILY 06/27/24 06/27/24 History Rimegepant Sulfate [Nurtec Odt] 75 mg PO DAILY PRN 06/27/24 06/27/24 History Allergies Allergy/AdvReac Type Severity Reaction Status Date / Time solifenacin [From Vesicare] Allergy Rash/Hives Verified 06/27/24 16:43 sumatriptan [From Imitrex] Allergy Rash/Hives Verified 06/27/24 16:43 morphine AdvReac See comment Verified 06/27/24 16:43 tramadol AdvReac Nausea & Verified 06/27/24 16:43 Vomiting Physical Exam Vitals: Vital Signs Temp Pulse Resp BP Pulse Ox 06/27/24 19:28 97.2 F L 75 18 123/65 06/27/24 18:45 98.9 F 74 20 146/75 99 06/27/24 14:35 98.6 F 72 18 131/83 99 Intake and Output 06/27/24 06/27/24 06/27/24 06:59 14:59 22:59 Other: Weight 108.862 kg Results CBC & Chem 7: 06/27/24 15:53 06/27/24 17:50 Labs: Abnormal Lab Results - Last 24 Hours (Table) 06/27/24 06/27/24 Range/Units 15:53 17:50 Chloride 108 H (98-107) mmol/L Calcium 8.0 L (8.4-10.2) mg/dL Total Protein 5.6 L (6.3-8.2) g/dL Urine Appearance Cloudy H (Clear) Urine Protein Trace H (Negative) Ur Squamous Epith Cells 8 H (0-4) /hpf Amorphous Sediment Rare H (None) /hpf Urine Bacteria Few H (None) /hpf Urine Mucus Many H (None) /hpf
[2024-06-27] MEDS: KETOROLAC 15 MG/ML 1 ML VIAL IVP PRN (21:40)
[2024-06-28 02:08] VITALS: RESP 16
[2024-06-28] MEDS: ENOXAPARIN 40 MG/0.4 ML SYRINGE SQ SCH (08:14)
[2024-06-28] MEDS: MECLIZINE 25 MG TAB PO PRN (08:14)
[2024-06-28 08:38] LABS: Basophils # (A) 0.05 X 10*3/uL (0.00-0.10); Eosinophils # (A) 0.27 X 10*3/uL (0.04-0.35); Eosinophils % (A) 5.3 %; HCT 38.1 % (37.2-46.3); HGB 12.6 g/dL (12.0-15.0); Lymphocytes # (A) 1.65 X 10*3/uL (0.90-5.00); Lymphocytes % (A) 32.7 %; MCH 29.2 pg (27.0-32.0); MCHC 33.1 g/dL (32.0-37.0); MCV 88.2 FL (80.0-97.0); Mean Platelet Volume 10.8 FL (9.5-12.2); Monocytes # (A) 0.49 X 10*3/uL (0.20-1.00); Monocytes % (A) 9.7 %; NRBC Per 100 WBC 0 X 10*3/uL (0.00-0.01); Neutrophils # (A) 2.58 X 10*3/uL (1.80-7.70); Neutrophils % (A) 51.1 %; Platelet Count 246 X 10*3/uL (140-440); RBC 4.32 X 10*6/uL (4.10-5.20); RDW 12.2 % (11.5-14.5); WBC 5.05 X 10*3/uL (4.50-10.00)
[2024-06-28 08:55] LABS: ALT 220 U/L (8-44); AST 183 U/L (13-35); Albumin 3.8 g/dL (3.8-4.9); Albumin/Globulin Ratio 2.11 Ratio (1.60-3.17); Alkaline Phosphatase 104 U/L (41-126); BUN/Creat Ratio 10.14 Ratio (12.00-20.00); Blood Urea Nitrogen 7.1 mg/dL (9.0-27.0); Calcium 8.7 mg/dL (8.7-10.3); Carbon Dioxide 22.9 mmol/L (21.6-31.8); Chloride 109 mmol/L (96-109); Globulin 1.8 g/dL (1.6-3.3); Glucose 89 mg/dL (70-110); Potassium 4.1 mmol/L (3.5-5.5); Sodium 140 mmol/L (135-145); Total Bilirubin 0.8 mg/dL (0.3-1.2); Total Protein 5.6 g/dL (6.2-8.2)
[2024-06-28] MEDS: MAGNESIUM SULFATE-D5W PMX 1 GM in DEXTROSE/WATER 1 100ML.BAG IVPB ONE (10:35)
--- NOTE | 2024-06-28 11:33 | P.PN ---
Subjective Progress Note Date: 06/28/24 Patient is a 33-year-old female with a past medical history of vertigo and migraines who presents to the ED with complaint of vertigo. Patient states that his symptoms started 3 days ago. Patient states that she notices symptoms first when she was sitting on the ground while putting together a bed frame and then when she stood up she felt dizzy. She states that her dizziness has been constant since then. She called the neurologist this morning who told her to go to the emergency department to rule out stroke. Patient states that she has had episodes of dizziness in the past but not this severe. Patient states that changing position and standing up or sitting down triggers her dizziness. Pat dayron also complaining of migraine. Patient admitted to the medicine service with neurology consultation. Patient seen this morning. She states that she still having a migraine headache. She states that her dizziness has not improved. 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 3 times daily as needed Migraine Continue Toradol Will give 1 dose of magnesium sulfate 1 g Neurology consult GERD Continue PPI DVT prophylaxis: Lovenox Objective - Vital Signs Vital signs: Vital Signs Temp 98.3 F 06/28/24 07:00 Pulse 70 06/28/24 10:19 Resp 16 06/28/24 07:00 BP 96/60 06/28/24 10:19 Pulse Ox 99 06/28/24 07:00 FiO2 Intake & Output 06/27/24 06/28/24 06/28/24 18:59 06:59 18:59 Intake Total 118 Balance 118 Weight 108.862 kg 108.862 kg Intake: Oral 118 Other: Voiding Method Toilet # Voids 3 - Labs CBC & Chem 7: 06/28/24 04:33 06/28/24 04:33 Labs: Abnormal Lab Results - Last 24 Hours (Table) 09/16/24 09/16/24 09/17/24 Range/Units 15:53 17:50 04:33 Chloride 108 H (98-107) mmol/L BUN 7.1 L (9.0-27.0) mg/dL BUN/Creatinine Ratio 10.14 L (12.00-20.00) Ratio Calcium 8.0 L (8.4-10.2) mg/dL AST 183 H (13-35) U/L ALT 220 H (8-44) U/L Total Protein 5.6 L 5.6 L (6.3-8.2) g/dL Urine Appearance Cloudy H (Clear) Urine Protein Trace H (Negative) Ur Squamous Epith Cells 8 H (0-4) /hpf Amorphous Sediment Rare H (None) /hpf Urine Bacteria Few H (None) /hpf Urine Mucus Many H (None) /hpf
[2024-06-28] MEDS: PANTOPRAZOLE 40 MG TABLET PO SCH (13:10)
[2024-06-28 14:45] VITALS: BP 108/77; PULSE 68; TEMP 98.2
--- NOTE | 2024-06-28 18:37 | P.DS ---
Providers Date of admission: 06/27/24 18:02 Attending physician: Rj Skaggs Consults: 06/27/24 18:02 Consult Physician Routine Consulting Provider: Shantelle Alford Consult Reason/Comments: persistent vertigo Do you want consulting provider notified?: Yes Primary care physician: Amilcar Trammell MD Hospital Course: Discharge Diagnosis: Persistent vertigo likely due to BPPV Migraine GERD Hospital Course: Patient is a 33-year-old female with a past medical history of vertigo and migraines who presented to the ED with complaint of vertigo. Patient states that her symptoms started 3 days ago. Patient states that she first noticed symptoms when she was sitting on the ground while putting together a bed frame and then when she stood up she felt dizzy. She states that her dizziness has been constant since then. She called the neurologist this morning who told her to go to the emergency department to rule out stroke. Patient states that she has had episodes of dizziness in the past but not this severe. Patient states that changing position and standing up or sitting down triggers her dizziness. Patient also complaining of migraine. Patient admitted to the medicine service with neurology consultation. Patient had a CT brain that was negative for acute process Patient had a CTA that was negative for significant stenosis Patient was seen by neurology and was cleared for discharge Patient likely etiology is BPPV Patient told to follow-up with her PCP to get set up for outpatient vestibular therapy Patient deemed stable for discharge. Patient seen and examined at bedside.[] Vital signs reviewed and stable. General: [non toxic], [no distress], [appears at stated age] Derm: [warm], [dry] Head: [atraumatic], [normocephalic], [symmetric] Eyes: [EOMI], [no lid lag], [anicteric sclera] Mouth: [no lip lesion], [mucus membranes moist] Cardiovascular: [S1S2 reg], [no murmur], [positive posterior tibial pulse bilateral], Lungs: [CTA bilateral], [no rhonchi, no rales] , [no accessory muscle use] Abdominal: [soft], [ nontender to palpation], [no guarding], [no appreciable organomegaly] Ext: [no gross muscle atrophy], [no edema], [no contractures] Neuro: [ CN II-XI grossly intact], [no focal neuro deficits] Psych: [Alert], [oriented], [appropriate affect] A total of [33] minutes of time were spent preparing this complex discharge summary . Patient Condition at Discharge: Stable Plan - Discharge Summary New Discharge Prescriptions: Continue Gabapentin [Neurontin] 300 mg PO TID Acetaminophen Tab [Tylenol] 1,000 mg PO BID PRN PRN Reason: Pain Omeprazole 40 mg PO DAILY Meclizine [Antivert] 25 mg PO QID PRN #20 tab PRN Reason: Vertigo Rimegepant Sulfate [Nurtec Odt] 75 mg PO DAILY PRN PRN Reason: Migraine Headache Discharge Medication List Meclizine [Antivert] 25 mg PO QID PRN #20 tab 07/17/23 [Rx] Acetaminophen Tab [Tylenol] 1,000 mg PO BID PRN 06/27/24 [History] Gabapentin [Neurontin] 300 mg PO TID 06/27/24 [History] Omeprazole 40 mg PO DAILY 06/27/24 [History] Rimegepant Sulfate [Nurtec Odt] 75 mg PO DAILY PRN 06/27/24 [History] Follow up Appointment(s)/Referral(s): Amilcar Trammell MD [Primary Care Provider] - 1-2 days Discharge Disposition: HOME SELF-CARE
--- NOTE | 2024-07-02 15:34 | P.CNNES ---
History of Present Illness Consult date: 06/28/24 Requesting physician: Demetris Bai Reason for Consult: Persistent vertigo History of Present Illness: Patient is a 33-year-old female came to the hospital yesterday at 2:16 PM for vertigo. Patient states that her first episode of vertigo occurred about couple years ago. She thought it was ear problem, saw an ENT, was given Antivert and symptoms went away. The second episode occurred about 8 months ago and the vertigo lasted for 1-2 weeks. It was not as severe. Her current episode started on Thursday, 3 days ago. Earlier that day, she had rearranged couple pieces of furniture in port bed frame together. When she stood up, everything started spinning and she fell. On Thursday and Thursday the vertigo would occur when she gets out of bed in the morning. If she sits up to getting out of bed, she feels vertigo, but it only lasts for about 20 seconds. It can also happen when she is standing up from a sitting position she gets dizzy. Sometimes more severe than other times. Bending down, looking at the ceiling and rolling over in the bed also makes her dizzy, but again it last only for 20 seconds. When she tilts her head or she rolls [id number], she spends. No previous history of concussion or head injury. Her symptoms are slightly getting better. Patient follows up with [place] [facility] with Dr. Corbin. Patient had undergone MRI of the brain, MRA of the neck and lumbar spine. Stroke or MS has been rule out. She was told that she has a vessel that is cur angela in the brain. When she started these current symptoms, patient called her neurology office and they recommended her to go to the ER. patient denies any focal neurological symptoms whatsoever. Vital signs on arrival blood pressure 131/83, pulse rate 72 temperature 98.6. Orthostatics were checked, and supine blood pressure 96/60, sitting was 111/75 and standing 114/80. Blood test shows normal CBC, PT PTT, normal CMP. UA is negative. CT head showed no acute intracranial process. Paranasal sinuses are reported clear. I personally reviewed CT head, and agree with the finding. External auditory canals are clear. Home medications include meclizine 25 mg 4 times daily as needed, gabapentin 3 mg 3 times daily, omeprazole and Nurtec. Review of Systems All pertinent positive and negatives mentioned in HPI. Otherwise complete negative. Past Medical History Past Medical History: Asthma, Fibromyalgia Additional Past Medical History / Comment(s): Migraines History of Any Multi-Drug Resistant Organisms: None Reported Past Surgical History: Adenoidectomy, Section, Cholecystectomy, Ear Surgery, Tonsillectomy Additional Past Surgical History / Comment(s): bladder Past Anesthesia/Blood Transfusion Reactions: No Reported Reaction Past Psychological History: No Psychological Hx Reported Smoking Status: Current every day smoker Past Alcohol Use History: Occasional Past Drug Use History: Marijuana Medications and Allergies Home Medications Medication Instructions Recorded Confirmed Type Meclizine [Antivert] 25 mg PO QID PRN #20 tab 07/17/23 06/27/24 Rx Acetaminophen Tab [Tylenol] 1,000 mg PO BID PRN 06/27/24 06/27/24 History Gabapentin [Neurontin] 300 mg PO TID 06/27/24 06/27/24 History Omeprazole 40 mg PO DAILY 06/27/24 06/27/24 History Rimegepant Sulfate [Nurtec Odt] 75 mg PO DAILY PRN 06/27/24 06/27/24 History Allergies Allergy/AdvReac Type Severity Reaction Status Date / Time solifenacin [From Vesicare] Allergy Rash/Hives Verified 06/27/24 16:43 sumatriptan [From Imitrex] Allergy Rash/Hives Verified 06/27/24 16:43 morphine AdvReac See comment Verified 06/27/24 16:43 tramadol AdvReac Nausea & Verified 06/27/24 16:43 Vomiting Physical Examination - Vital Signs Vital Signs: Vital Signs Temp Pulse Pulse Pulse Pulse Pulse Resp 06/28/24 14:40 98.2 F 68 16 06/28/24 10:19 71 91 70 06/28/24 07:00 98.3 F 92 16 06/28/24 02:00 97.4 F L 54 L 16 06/27/24 20:49 98.7 F 76 18 06/27/24 20:30 66 18 06/27/24 19:28 97.2 F L 75 18 06/27/24 18:45 98.9 F 74 20 BP BP BP BP BP Pulse Ox 06/28/24 14:40 108/77 100 06/28/24 10:19 111/75 114/80 96/60 06/28/24 07:00 112/71 99 06/28/24 02:00 93/62 99 06/27/24 20:49 117/80 99 06/27/24 20:30 139/83 99 06/27/24 19:28 123/65 06/27/24 18:45 146/75 99 Intake and Output 06/28/24 06/28/24 06/28/24 06:59 14:59 22:59 Intake Total 236 Balance 236 Intake: Oral 236 Other: # Voids 3 1 Patient is a young female, in no acute distress. Patient is alert awake oriented to time place and person. Speech and language functions are normal. Patient can name and repeat very well. No aphasia or dysarthria. Attention, concentration and fund of knowledge is adequate. On cranial nerve examination, pupils are equal, round and reacting to light, visual flynn are full on confrontation, with no neglect on double simultaneous stimulation. Extraocular muscles are intact with no nystagmus. Face is symmetric, tongue protrudes to the midline. Palatal elevation and sensation normal, hearing and shoulder shrug normal, facial sensation normal. On muscle strength testing, there is no pronator drift and the strength is normal in arms and legs distally and proximally. Deep tendon reflexes are symmetric 2+ all over and plantars downgoing. Sensory to touch is equal with no neglect on double simultaneous stimulation. Cerebellar function showed no ataxia for [id number] testing. No dysdiadochokinesia. No ataxia for [id number] testing on either side. Tone and bulk of muscles normal. Gait deferred.. On general examination, there is no carotid bruit or murmur, S1-S2 audible. Chest is clear on consultation. Abdomen is soft nontender. No organomegaly, bowel sounds present. Peripheral pulses are present. No peripheral edema. Results - Laboratory Findings CBC and BMP: 06/28/24 04:33 06/28/24 04:33 Abnormal Lab Findings: Abnormal Labs 06/27/24 06/27/24 06/28/24 15:53 17:50 04:33 Chloride 108 H BUN 7.1 L BUN/Creatinine Ratio 10.14 L Calcium 8.0 L AST 183 H ALT 220 H Total Protein 5.6 L 5.6 L Urine Appearance Cloudy H Urine Protein Trace H Ur Squamous Epith Cells 8 H Amorphous Sediment Rare H Urine Bacteria Few H Urine Mucus Many H Assessment and Plan Assessment: * Probable benign positional peripheral vertigo. This current is the third episode of flareup. * Migraines * Fibromyalgia Plan: * CTA of head and neck revealed no flow-limiting stenosis bilateral carotid bifurcations. Normal [place] of [place]. * Recommend patient undergo vestibular rehabilitation for BPPV, with occupational therapist * Take meclizine sparingly. * Follow up with her neurologist in 1-2 weeks. * Neurologically clear for discharge. Thank you for the consult.
== END 2024-06-28 18:43 | disposition home or self-care (01) ==
LOC: EC 14:16 → 6NMEDSUR 18:02
PROVIDERS: ADMIT Student in an Organized Health Care Education/Training Program; ATTEND Student in an Organized Health Care Education/Training Program
DX: R42 Dizziness and giddiness (principal); G43.909 Migraine, unspecified, not intractable, without status migrainosus; M54.2 Cervicalgia; R07.9 Chest pain, unspecified; K21.9 Gastro-esophageal reflux disease without esophagitis; F17.200 Nicotine dependence, unspecified, uncomplicated; Z79.899 Other long term (current) drug therapy; Z88.5 Allergy status to narcotic agent; Z88.8 Allergy status to other drugs, medicaments and biological substances; W19.XXXA Unspecified fall, initial encounter
CPT/HCPCS: 36415; 70450; 70496; 70498; 80053; 81001; 85025; 85610; 85730; 93005; 96361; 96365; 96372; 96375; 96376; 99285

== ENCOUNTER → 2025-04-19 | Outpatient (CLI) | payer OTHER | END | disposition home or self-care (01) | LOC: LABWHC1 14:06 | PROVIDERS: ATTEND Psychiatry & Neurology Neurology | DX: I49.9 Cardiac arrhythmia, unspecified (principal); R00.1 Bradycardia, unspecified | CPT/HCPCS: 93005 ==